=== PATIENT | male | born 1945 | race Caucasian/White ===

== ENCOUNTER 2017-11-13 06:44 | Day surgery (SDC) | payer MEDICARE ==
[2017-11-03 14:10] VITALS: BMI 36.0
[~2017-11-13 06:44] MED LIST: DEXAMETHASONE SOD PHOSPHATE 10 MG/ML 1 ML VIAL IV ONE; HEPARIN SODIUM,PORCINE 5,000 UNIT/ML 1 ML VIAL SQ ONE; HYDROmorphone 0.5 MG/0.5 ML SYRINGE IVP PRN; LACTATED RINGERS 1,000 ML IV SCH; LIDOCAINE 1% 20 ML VIAL (10MG/ML) FOR IV START INTRADERMA PRN; MIDAZOLAM 2 MG/2 ML VIAL IV PRN; ONDANSETRON 4 MG/2 ML VIAL IVP ONE; Pre Op ABX Message 1 EACH MISC MISCELLANE ONE; SCOPOLAMINE 1.5MG/72HR PATCH TRANSDERM ONE
[2017-11-13 07:09] VITALS: RESP 16; TEMP 98.4
[2017-11-13] MEDS ORDERED: PROPOFOL 10 MG/ML 20 ML VIAL IV ONE (07:58)
[2017-11-13] MEDS ORDERED: MIDAZOLAM 2 MG/2 ML VIAL ONE (07:58)
[2017-11-13] MEDS ORDERED: fentaNYL (PF) 50 MCG/ML 2 ML AMP ONE (07:58)
[2017-11-13] MEDS ORDERED: LIDOCAINE 1% INJ 10MG/ML (20 ML MDV) ONE (07:58)
--- NOTE | 2017-11-13 08:00 | P.GSHP ---
History of Present Illness H&P Date: 11/13/17 Chief Complaint: Melanoma This is a 72-year-old male who underwent recent biopsy of a skin lesion of his mid back. Patient's found to have a melanoma. Patient presents today for wide local excision. Past Medical History Past Medical History: Atrial Fibrillation, Cancer, Hypertension, Prostate Disorder Additional Past Medical History / Comment(s): HX OF SKIN CA History of Any Multi-Drug Resistant Organisms: None Reported Past Surgical History: Bariatric Surgery, Hernia Repair, Orthopedic Surgery Additional Past Surgical History / Comment(s): RT ROTATOR CUFF, benign tumor removed from left thigh. tendon repair, trigger finger release, right tibia surgery. deviated septum repair,skin ca removed from JANAE ear AND CHEST, colonoscopy Past Anesthesia/Blood Transfusion Reactions: No Reported Reaction Smoking Status: Never smoker - Past Family History Mother Family Medical History: No Reported History Son(s) Family Medical History: Deep Vein Thrombosis (DVT) Medications and Allergies Home Medications Medication Instructions Recorded Confirmed Type Diltiazem HCl [Cardizem] 240 mg PO DAILY 06/12/14 11/13/17 History Aspirin [Adult Low Dose Aspirin EC] 81 mg PO DAILY 10/06/17 11/13/17 History Atorvastatin [Lipitor] 20 mg PO HS 10/06/17 11/13/17 History Doxepin [SINEquan] 10 mg PO HS 10/06/17 11/13/17 History Pantoprazole Sodium [Protonix] 40 mg PO DAILY 10/06/17 11/13/17 History Tamsulosin [Flomax] 0.4 mg PO DAILY 10/06/17 11/13/17 History Zolpidem [Ambien] 5 mg PO HS PRN 10/06/17 11/13/17 History Triamterene-Hctz 37.5-25Mg 1 tab PO DAILY 11/13/17 11/13/17 History [Dyazide 37.5-25 Capsule] Allergies Allergy/AdvReac Type Severity Reaction Status Date / Time No Known Allergies Allergy Verified 11/13/17 06:57 Surgical - Exam Vital Signs Temp Pulse Resp BP Pulse Ox 98.4 F 96 16 149/73 95 11/13/17 07:07 11/13/17 07:07 11/13/17 07:07 11/13/17 07:07 11/13/17 07:07 - General well developed, no distress - Eyes PERRL - ENT normal pinna, normal nares - Neck no masses - Respiratory normal expansion - Cardiovascular Rhythm: regular - Abdomen Abdomen: soft, non tender - Integumentary Mid upper back biopsy site well healed. Mildly erythematous no evidence of infection Assessment and Plan Assessment: Back melanoma. We'll perform wide local excision.
[2017-11-13] MEDS ORDERED: SODIUM CHLORIDE 0.9% 50 ML with ceFAZolin 2,000 MG IV ONE ×2 (08:06)
[2017-11-13] MEDS ORDERED: BUPIVACAIN-EPI 0.5%-1:200,000 30 ML VIAL SQ ONE ×2 (08:13→08:18)
--- NOTE | 2017-11-13 08:47 | P.OP ---
Date of Procedure: 11/13/17 Preoperative Diagnosis: Back melanoma Postoperative Diagnosis: Back melanoma Procedure(s) Performed: Wide local excision of back melanoma Anesthesia: MAC Surgeon: Papito Babcock Estimated Blood Loss (ml): 5 Pathology: other (Back melanoma) Condition: stable Disposition: PACU Description of Procedure: The patient's placed on the operating table in the lateral position. He received IV sedation. His back was prepped and draped usual sterile fashion. The patient had a 5 mm biopsy site with the melanoma was previously position. This was in the mid upper back. The area was anesthetized 1% local Xylocaine. And then an elliptical skin incision was made. The Bovie hemostasis. The specimen was then dissected free from some taste tissues. Specimen measured 8 x 3 cm in diameter. The skin was closed in 2 layers using 2-0 Vicryl and 3-0 Monocryl. Dermabond dressings was applied. Patient top she will was sent to recovery in stable condition.
[2017-11-13 10:01] VITALS: BP 124/86; PULSE 86
== END 2017-11-13 10:00 | disposition home or self-care (01) ==
LOC: OR 06:44
PROVIDERS: ATTEND Surgery
DX: D03.59 Melanoma in situ of other part of trunk (principal); I48.91 Unspecified atrial fibrillation; I10 Essential (primary) hypertension; E78.5 Hyperlipidemia, unspecified; K21.9 Gastro-esophageal reflux disease without esophagitis; N42.9 Disorder of prostate, unspecified; Z98.84 Bariatric surgery status; Z79.82 Long term (current) use of aspirin; Z79.899 Other long term (current) drug therapy
CPT/HCPCS: 11606; 88305; 88342; 88341; J2250; J1644; J1100; J2405; J2001; J3010; J0690; J2704

== ENCOUNTER → 2020-07-24 | Outpatient (CLI) | payer MEDICARE ==
--- NOTE | 2020-07-26 07:53 | MR ---
EXAMINATION TYPE: MR brain wo/w con DATE OF EXAM: 07/24/2020 COMPARISON: NONE HISTORY: Seizures, history of left and right ear melanoma TECHNIQUE: Multiplanar, multisequence images of the brain and brainstem is performed without and with IV contras t, utilizing 10 mL intravenous Gadavist . FINDINGS: Diffusion weighted images demonstrate no evidence of a recent infarct or other diffusion ab normality. There is mild to moderate diffuse ventricular and sulcal prominence. Occasional scattered tiny focus of T2 hyperintensity seen throughout the white matter bilaterally. There are roughly 6 ti ny scattered lesions. T2 coronal weighted images show hippocampal gyri to appear symmetric and felt w ithin normal limits. Midline structures demonstrate normal morphology. The craniocervical junction appears within normal limits. Post contrast images demonstrate no abnormal enhancement. The dural venous sinuses appear pa tent. The visualized sinuses are clear and the globes are intact. Nasal septum is deviated to right o f midline. IMPRESSION: Mild to moderate diffuse cerebral atrophy and mild to minimal chronic small vessel ischem ic changes. No suspicious enhancement noted.
== END | disposition home or self-care (01) ==
LOC: RADMRIMAIN 18:27
PROVIDERS: ATTEND Psychiatry & Neurology Neurology
DX: I67.82 Cerebral ischemia (principal); G31.9 Degenerative disease of nervous system, unspecified; Z85.820 Personal history of malignant melanoma of skin
CPT/HCPCS: 70553; A9585